=== PATIENT | male | born 1950 | race Caucasian/White ===

== ENCOUNTER 2017-06-10 19:37 | Emergency (ER) | payer SELFPAY ==
[~2017-06-10 19:37] MED LIST: BAYER ASA325 MG OR; CIPRODEX1 ML AD; DOXYCYCL HYC100 MG PO; INDOMETHACIN50 MG PO; METFORMIN500 M1 PO; MONOPRIL HC1 PO; MONOPRIL HCT OR; MONOPRIL10 MG OR; MONOPRIL10 MG PO; NIACIN500 MG OR; SIMVASTATIN20 MG PO; VIAGRA100 MG OR; VIAGRA100 MG PO; VYTORIN 10/201 TAB OR; VYTORIN 10/201 TAB PO
== END 2017-06-10 19:48 | disposition expired | DRG 298 ==
LOC: ED 19:37
PROC: 0BH17EZ Insertion of Endotracheal Airway into Trachea, Via Natural or Artificial Opening (ICD-10-PCS; principal; 2017-06-10)
DX: I46.9 Cardiac arrest, cause unspecified (principal); C80.1 Malignant (primary) neoplasm, unspecified; E66.9 Obesity, unspecified